=== PATIENT | female | born 1945 | race Caucasian/White ===

== ENCOUNTER → 2016-07-01 | Outpatient (CLI) | payer OTHER ==
[~2016-07-01] MED LIST: ACT35 PO; AMR2 PO; ATR10 PO; CLRUNK PO; CZR50 PO; FLUO20CA35 PO; GLC500 PO; SIMV40TA2 PO
--- NOTE | 2016-07-02 12:40 | MAMMOGRAPHY REPORT ---
BILATERAL DIGITAL SCREENING MAMMOGRAM WITH CAD: 07/01/2016 CLINICAL HISTORY: Routine screening. Patient has no complaints. TECHNIQUE: Bilateral CC and MLO views were obtained. Current study was also evaluated with a Comput er Aided Detection (CAD) system. COMPARISON: Comparison is made to exams dated: 06/28/2015 mammogram, 06/27/2014 mammogram, 06/24/2013 wanda mogram, 06/22/2012 mammogram, and 06/18/2010 mammogram - [facility]. BREAST COMPOSITION: There are scattered areas of fibroglandular density in both breasts. FINDINGS: An 8 mm focal asymmetry in the upper outer anterior left breast is unchanged mammographica lly dating back to at least 06/14/2009, therefore likely benign. There is a stable benign rim calci fication within the right breast. No suspicious mass, architectural distortion or cluster of microc alcifications is seen. IMPRESSION: ACR BI-RADS CATEGORY 1: NEGATIVE There is no mammographic evidence of malignancy. A 1 year screening mammogram is recommended. The p atient will receive written notification of the results. Approximately 10% of breast cancers are not detected with mammography. A negative mammographic repor t should not delay biopsy if a clinically suggestive mass is present. Jeannette Green M.D. ay/:07/01/2016 15:06:48 Appliance Fixer: Jackelyn Dubois, [facility] letter sent: Normal 1/2 BI-RADS Code: ACR BI-RADS Category 1: Negative
== END | disposition home or self-care (01) ==
LOC: C.MAMM 13:54
PROVIDERS: ATTEND Obstetrics & Gynecology
DX: Z12.31 Encounter for screening mammogram for malignant neoplasm of breast (principal)

== ENCOUNTER → 2016-10-28 | Outpatient (CLI) | payer OTHER ==
[2016-10-28 14:27] LABS: ESTIMATED AVERAGE GLUCOSE 148 mg/dl; HA1C FLAG Normal (Normal)
[2016-10-28 14:45] LABS: ALT/SGPT 19 U/L (12-78); BLOOD UREA NITROGEN 13 mg/dl (7-18); CARBON DIOXIDE 26 mmol/L (21-32); CHLORIDE 108 mmol/L (98-107); CHOLESTEROL 144 mg/dl (0-200); CREATININE 0.84 mg/dl (0.60-1.20); GLUCOSE 121 mg/dl (70-99); POTASSIUM 4.1 mmol/L (3.5-5.1); SODIUM 144 mmol/L (136-145); TRIGLYCERIDES 107 mg/dl (0-150); VERY LOW DENSITY LIPOPROT CALC 21 mg/dl
[2016-10-28 14:49] LABS: CHOLESTEROL/HDL RATIO 2.2; HDL CHOLESTEROL 65 mg/dl; LDL CHOLESTEROL CALCULATED 58 mg/dl
[2016-10-28 15:02] LABS: CALCIUM 9.6 mg/dl (8.5-10.1)
== END | disposition home or self-care (01) ==
LOC: C.LABBC 11:43
PROVIDERS: ATTEND Family Medicine
DX: E11.9 Type 2 diabetes mellitus without complications (principal); E78.5 Hyperlipidemia, unspecified

== ENCOUNTER → 2017-05-05 | Outpatient (CLI) | payer OTHER ==
[2017-05-05 13:51] LABS: ESTIMATED AVERAGE GLUCOSE 148 mg/dl; HA1C FLAG Normal (Normal)
[2017-05-05 14:11] LABS: BLOOD UREA NITROGEN 13 mg/dl (7-18); BUN/CREATININE RATIO 16.4 (10-20); CALCIUM 8.7 mg/dl (8.5-10.1); CARBON DIOXIDE 28 mmol/L (21-32); CHLORIDE 105 mmol/L (98-107); GLUCOSE 124 mg/dl (70-99); POTASSIUM 3.6 mmol/L (3.5-5.1); SODIUM 141 mmol/L (136-145)
== END | disposition home or self-care (01) ==
LOC: C.LABBC 11:06
PROVIDERS: ATTEND Family Medicine
DX: E11.9 Type 2 diabetes mellitus without complications (principal); I10 Essential (primary) hypertension

== ENCOUNTER → 2017-06-03 | Outpatient (CLI) | payer OTHER | END | disposition home or self-care (01) | LOC: C.MAMM 13:59 | PROVIDERS: ATTEND Obstetrics & Gynecology | DX: M81.0 Age-related osteoporosis without current pathological fracture (principal) ==

== ENCOUNTER → 2017-07-02 | Outpatient (CLI) | payer OTHER ==
--- NOTE | 2017-07-02 15:31 | MAMMOGRAPHY REPORT ---
BILATERAL DIGITAL SCREENING MAMMOGRAM TOMOSYNTHESIS WITH CAD: 07/02/2017 CLINICAL HISTORY: Routine screening. Patient has no complaints. TECHNIQUE: Breast tomosynthesis in addition to standard 2D mammography was performed. Current study was also evaluated with a Computer Aided Detection (CAD) system. COMPARISON: Comparison is made to exams dated: 07/01/2016 mammogram, 06/28/2015 mammogram, 06/27/2014 mamm ogram, 06/24/2013 mammogram, 06/22/2012 mammogram, and 06/27/2011 mammogram - [facility] BREAST COMPOSITION: There are scattered areas of fibroglandular density in both breasts. FINDINGS: An asymmetry in the anterior right breast along the posterior nipple line on the CC view ap pears very similar dating back to at least 06/19/2011, therefore likely benign. There are stable haroon nt punctate microcalcifications in the slightly medial and posterior right breast on the CC view. A few scattered benign rim calcifications. No new suspicious mass, architectural distortion or cluster of microcalcifications is seen. IMPRESSION: ACR BI-RADS CATEGORY 1: NEGATIVE There is no mammographic evidence of malignancy. A 1 year screening mammogram is recommended. The pa tient will receive written notification of the results. Approximately 10% of breast cancers are not detected with mammography. A negative mammographic report should not delay biopsy if a clinically suggestive mass is present. Jeannette Green M.D. ay/:07/02/2017 14:50:34 Residential Program Worker: Belkis LEES)(Zeus), [facility] letter sent: Normal 1/2 BI-RADS Code: ACR BI-RADS Category 1: Negative
== END | disposition home or self-care (01) ==
LOC: C.MAMM 14:23
PROVIDERS: ATTEND Obstetrics & Gynecology
DX: Z12.31 Encounter for screening mammogram for malignant neoplasm of breast (principal)

== ENCOUNTER → 2018-01-19 | Outpatient (CLI) | payer OTHER ==
[2018-01-19 14:19] LABS: HEMOGLOBIN A1C 6.7 % (4.5-5.6)
[2018-01-19 14:34] LABS: ALT/SGPT 23 U/L (12-78); BLOOD UREA NITROGEN 17 mg/dl (7-18); CALCIUM 9.3 mg/dl (8.5-10.1); CARBON DIOXIDE 28 mmol/L (21-32); CHOLESTEROL 157 mg/dl (0-200); CREATININE 0.95 mg/dl (0.60-1.20); GLUCOSE 132 mg/dl (70-99); LDL CHOLESTEROL CALCULATED 65 mg/dl; SODIUM 139 mmol/L (136-145)
== END | disposition home or self-care (01) ==
LOC: C.LABBC 10:41
PROVIDERS: ATTEND Family Medicine
DX: E11.9 Type 2 diabetes mellitus without complications (principal); I10 Essential (primary) hypertension

== ENCOUNTER 2018-11-18 13:22 | Inpatient (IN) ==
[2018-11-18] MEDS ORDERED: MoRPHine SULFATE 2 MG/ML CARP IV PRN ×2 (13:37→21:50)
[2018-11-18] MEDS ORDERED: SODIUM CHLORIDE 0.9% 1000ML 1,000 ML IV SCH ×2 (13:45→20:45)
[2018-11-18 14:25] LABS: Basophils # (auto) 0.02 K/uL (0-0.2); Basophils % (auto) 0.3 %; Eosinophils % (auto) 1.5 %; Hematocrit (blood only) 35.6 % (37-47); Hemoglobin 11.9 g/dL (12.0-16.0); Immature Granulocytes # (auto) 0.02 K/uL (0.00-0.02); Immature Granulocytes % (auto) 0.3 %; Lymphocytes % (auto) 24.7 %; Mean Corpuscular Hgb Conc 33.4 g/dL (32-36); Mean Corpuscular Volume 89.4 fL (80-100); Mean Platelet Volume 8.9 fL (7.4-10.4); Monocytes % (auto) 4.6 %; Neutrophils # (auto) 4.44 K/uL (1.4-6.5); Neutrophils % (auto) 68.6 %; Platelet Count 212 K/uL (130-400); RDW Coefficient of Variation 13.8 % (11.5-14.5); RDW Standard Deviation 45.4 fL (36.4-46.3); Red Blood Count 3.98 M/uL (4.2-5.4); White Blood Count 6.48 K/uL (4.8-10.8)
[2018-11-18 14:36] LABS: Partial Thromboplastin Ratio 0.8; Partial Thromboplastin Time 21.5 Seconds (21.0-31.0); Prothrombin Time 9.8 Seconds (9.0-12.0)
[2018-11-18 14:42] LABS: BUN Creatinine Ratio 12.3 (10-20); Calcium 9.5 mg/dl (8.5-10.1); Creatinine Clr Calc Pharmacy 34.7 ml/min; Est GFR (African American) 54.5; Potassium 3.6 mmol/L (3.5-5.1)
--- NOTE | 2018-11-18 14:43 | XRay Report ---
XR hip LT 2-3V w pelvis CLINICAL HISTORY: trauma, deformity COMPARISON: None FINDINGS: Note is made of an acute moderately displaced markedly angulated subtrochanteric fracture of the left femur. The femur at the level of the fracture may extend through the skin. Therefore, thi s may reflect an open fracture. No additional fractures are identified on this exam although position ing was difficult. IMPRESSION: Acute moderately displaced markedly angulated subtrochanteric fracture of the left femur may reflect an open fracture. Electronically signed by: Cruz Vaughn M.D. 11/18/2018 2:41 PM
--- NOTE | 2018-11-18 14:46 | XRay Report ---
SINGLE VIEW CHEST CLINICAL HISTORY: Trauma. Fall. FINDINGS: An AP, portable, supine chest radiograph is obtained. No prior studies are available for co mparison at the time of dictation. The examination is degraded by portable technique and patient rota tion. The cardiomediastinal silhouette is unremarkable. The lungs and pleural spaces are clear. No p neumothorax is seen. The skeletal structures are osteopenic. There are healed right-sided rib fractur es. IMPRESSION: No acute cardiopulmonary abnormality. Electronically signed by: Livan Fuller M.D. 11/18/2018 2:44 PM
[2018-11-18 14:48] LABS: Appearance Urine Clear (Clear); Bilirubin Urine Negative (Negative); Blood Urine Negative (Negative); Color Urine Yellow; Glucose Urine UA 3+ (Negative); Ketones Urine Negative (Negative); Leukocyte Esterase Urine Negative (Negative); Nitrite Urine Negative (Negative); Protein Urine Negative (Negative); Specific Gravity Urine 1.014 (1.000-1.030); Urobilinogen Urine Negative (Negative); pH Urine 7.5 (4.5-7.5)
--- NOTE | 2018-11-18 16:14 | History & Physical Report ---
Date of Service November 18, 2018 Assessment & Plan (1) Fracture of left femur: Patient with acute subtrochanteric fracture of the left femur after a mechanical fall at home. Presently she is neurovascularly intact, pain well controlled at rest. Patient with no active cardiac or pulmonary disease. She is able to complete 4 mets of activity without difficulty. She is medically optimized to proceed with surgery without further testing or intervention. -Admit to medical floor -Neurovascular checks q 4 hours -Consult Orthopedic Surgery for surgical repair -Pain control with Tylenol, Oxycodone and Morphine PRN -Bowel regimen -Zofran PRN nausea Present on Admission?: Yes (2) Diabetes: Patient with DM-II, on Metformin therapy. Blood sugar elevated today at 204, suspect acute stress response. Last HgAIC on 01/19/18 = 6.7 -Hold Metformin while inpatient -Lantus 8 u BID -ISS - moderate stress dose -CC/Heart healthy diet when able Present on Admission?: Yes (3) Hypertension: Blood pressure mildly elevated at present. Most likely secondary to pain, stress response in setting of recent trauma -Continue to monitor -Continue Losartan 50mg po daily Present on Admission?: Yes (4) Hyperlipidemia: Chronic -Continue Simvastatin 40mg po qPM Present on Admission?: Yes (5) Osteoporosis: Oliver had DEXA scan on 03 Jun 2017 which revealed T score 1.5 at spine, -1.8 at left femur neck with moderate fracture risk, -2.0 at right femur neck with moderate fracture risk. Z score normal limit relative to age -Continue Calcium and Vitamin D -Continue Alendronate Present on Admission?: Yes (6) Depression: Chronic. Well controlled -Continue Prozac F/E/N - LR at 125mL/hr x 2 liters, electrolytes WNL, check Mg and PO4 x 1 and replete as needed, NPO for now for possible surgery Ppx - SCDs Code - Full Dispo - MedSurge Present on Admission?: Yes History of Present Illness Chief Complaint: fracture left femur Primary Care Provider: Eunice Ledesma MD Candy Vivar is a pleasant 73yo female with history of DM, HTN, HLP and Ostoeporosis presenting with acute fracture of left femur after a mechanical fall at home. Patient was in her usual state of health this afternoon when she fell walking to her basement. She thinks that she may have tripped on something. She denies head trauma or loss of consciousness. No chest pain, palpitations, dizziness, weakness or incontinence preceding or following the fall. She was at first unable to move her left leg. She had severe pain and was unable to get up. X-ray confirmed acute moderately displaced markedly angulated subtrochanteric fracture of the left femur. Patient presently comfortable. States that she only has pain when she moves her leg. No additional complaints at this time. ER Course: Morphine 2mg, NSS Allergies Allergy/AdvReac Type Severity Reaction Status Date / Time PENICILLIN Allergy Intermediate hives Uncoded 11/18/18 14:22 ORANGES AdvReac Unknown per Uncoded 11/18/18 14:22 allergy test. Home Medications Home Medications Medication Instructions Recorded Confirmed Type alendronate 70 mg PO WK 11/18/18 11/18/18 History fluoxetine 20 mg PO DAILY 11/18/18 11/18/18 History hydroxyzine HCl 10 mg PO DAILY PRN 11/18/18 11/18/18 History losartan 50 mg PO QAM 11/18/18 11/18/18 History metformin 100 mg PO BID 11/18/18 11/18/18 History simvastatin 40 mg PO QPM 11/18/18 11/18/18 History Past Med/Surg History Medical History Depression Dyslipidemia Hypertension No significant past surgical history Osteoporosis Type 2 diabetes mellitus Family History Other Diabetes Social History Preferred Language: [place] Communication Ability: Effective marital status: Current Living Situation: Spouse other: active, ambulatory, independent in ADLs Feels Safe at Home: Yes Smoking Status: Never smoker Hx Alcohol Use: No Hx Substance Use: No Review of Systems Review of Systems: All systems reviewed & are unremarkable except as noted in HPI & below Physical Exam Physical Exam: General: patient resting comfortably on right side, NAD, non- toxic in appearance, AA&O x 4 Skin: warm, dry, intact, no rashes or lesions HEENT: NC/AT, PERRL, EOMI, anicteric sclera, conjunctiva without injection, external ear normal to inspection and nontender, nares patent, moist mucus membranes, dentition intact, no oropharyngeal lesions, neck supple, trachea midline, no LAD, no thyromegaly, no JVD Heart: +S1/S2, regular, no m/r/g Lungs: equal air entry bilaterally, no rales/rhonchi/wheezes Abd: +BS, soft, NT/ND, no masses/organomegaly/ascites Ext: left leg with obvious deformity, extremities warm, 2+ pulses in UE/LE bilaterally, no clubbing/cyanosis or edema, sensation and mobility intact Neuro: nonfocal, patient AA&O x 4, speech intact, no facial droop Results & Data Vital Signs (Past 12 Hours) Vital Signs Temp Pulse Pulse Resp BP BP Pulse Ox 11/18/18 15:38 47 L 17 116/63 99 11/18/18 13:25 37.1 C 69 17 167/58 H 99 Laboratory Results Lab Results 11/18/18 11/18/18 11/18/18 Range/Units 14:10 14:16 14:16 WBC 6.48 (4.8-10.8) K/uL RBC 3.98 L (4.2-5.4) M/uL Hgb 11.9 L (12.0-16.0) g/dL Hct 35.6 L (37-47) % MCV 89.4 (80-100) fL MCH 29.9 (25-34) pg MCHC 33.4 (32-36) g/dL RDW Std Deviation 45.4 (36.4-46.3) fL RDW Coeff of Toña 13.8 (11.5-14.5) % Plt Count 212 (130-400) K/uL MPV 8.9 (7.4-10.4) fL Immature Gran % (Auto) 0.3 % Neut % (Auto) 68.6 % Lymph % (Auto) 24.7 % [place] % (Auto) 4.6 % Eos % (Auto) 1.5 % Baso % (Auto) 0.3 % Immature Gran # (Auto) 0.02 (0.00-0.02) K/uL Neut # (Auto) 4.44 (1.4-6.5) K/uL Lymph # (Auto) 1.60 (1.2-3.4) K/uL [place] # (Auto) 0.30 (0.11-0.59) K/uL Eos # (Auto) 0.10 (0-0.5) K/uL Baso # (Auto) 0.02 (0-0.2) K/uL PT 9.8 (9.0-12.0) Seconds INR 1.0 (0.9-1.1) APTT 21.5 (21.0-31.0) Seconds PTT Ratio 0.8 Sodium (136-145) mmol/L Potassium (3.5-5.1) mmol/L Chloride (98-107) mmol/L Carbon Dioxide (21-32) mmol/L Anion Gap (3-11) BUN (7-18) mg/dl Creatinine (0.6-1.2) mg/dl Est Cr Clr Drug Dosing ml/min Est GFR ( Amer) Est GFR (Non-Af Amer) BUN/Creatinine Ratio (10-20) Glucose (70-99) mg/dl Calcium (8.5-10.1) mg/dl Urine Color Yellow Urine Appearance Clear (Clear) Urine pH 7.5 (4.5-7.5) Ur Specific [place] 1.014 (1.000-1.030) Urine Protein Negative (Negative) Urine Glucose (UA) 3+ H (Negative) Urine Ketones Negative (Negative) Urine Blood Negative (Negative) Urine Nitrite Negative (Negative) Urine Bilirubin Negative (Negative) Urine Urobilinogen Negative (Negative) Ur Leukocyte Esterase Negative (Negative) Blood Type Antibody Screen 11/18/18 11/18/18 Range/Units 14:16 14:16 WBC (4.8-10.8) K/uL RBC (4.2-5.4) M/uL Hgb (12.0-16.0) g/dL Hct (37-47) % MCV (80-100) fL MCH (25-34) pg MCHC (32-36) g/dL RDW Std Deviation (36.4-46.3) fL RDW Coeff of Toña (11.5-14.5) % Plt Count (130-400) K/uL MPV (7.4-10.4) fL Immature Gran % (Auto) % Neut % (Auto) % Lymph % (Auto) % [place] % (Auto) % Eos % (Auto) % Baso % (Auto) % Immature Gran # (Auto) (0.00-0.02) K/uL Neut # (Auto) (1.4-6.5) K/uL Lymph # (Auto) (1.2-3.4) K/uL [place] # (Auto) (0.11-0.59) K/uL Eos # (Auto) (0-0.5) K/uL Baso # (Auto) (0-0.2) K/uL PT (9.0-12.0) Seconds INR (0.9-1.1) APTT (21.0-31.0) Seconds PTT Ratio Sodium 142 (136-145) mmol/L Potassium 3.6 (3.5-5.1) mmol/L Chloride 107 (98-107) mmol/L Carbon Dioxide 29 (21-32) mmol/L Anion Gap 7.0 (3-11) BUN 14 (7-18) mg/dl Creatinine 1.14 (0.6-1.2) mg/dl Est Cr Clr Drug Dosing 34.7 ml/min Est GFR ( Amer) 54.5 Est GFR (Non-Af Amer) 47.0 BUN/Creatinine Ratio 12.3 (10-20) Glucose 204 H (70-99) mg/dl Calcium 9.5 (8.5-10.1) mg/dl Urine Color Urine Appearance (Clear) Urine pH (4.5-7.5) Ur Specific [place] (1.000-1.030) Urine Protein (Negative) Urine Glucose (UA) (Negative) Urine Ketones (Negative) Urine Blood (Negative) Urine Nitrite (Negative) Urine Bilirubin (Negative) Urine Urobilinogen (Negative) Ur Leukocyte Esterase (Negative) Blood Type B Positive Antibody Screen NEGATIVE Diagnostic Findings SINGLE VIEW CHEST CLINICAL HISTORY: Trauma. Fall. FINDINGS: An AP, portable, supine chest radiograph is obtained. No prior studies are available for comparison at the time of dictation. The examination is degraded by portable technique and patient rotation. The cardiomediastinal silhouette is unremarkable. The lungs and pleural spaces are clear. No pneumothorax is seen. The skeletal structures are osteopenic. There are healed right-sided rib fractures. IMPRESSION: No acute cardiopulmonary abnormality. Electronically signed by: Livan Fuller M.D. 11/18/2018 2:44 PM Dictated: 11/18/18 1439 Transcribed: 11/18/18 1439 XR hip LT 2-3V w pelvis CLINICAL HISTORY: trauma, deformity COMPARISON: None FINDINGS: Note is made of an acute moderately displaced markedly angulated subtrochanteric fracture of the left femur. The femur at the level of the fracture may extend through the skin. Therefore, this may reflect an open fracture. No additional fractures are identified on this exam although positioning was difficult. IMPRESSION: Acute moderately displaced markedly angulated subtrochanteric fracture of the left femur may reflect an open fracture. Electronically signed by: Cruz Vaughn M.D. 11/18/2018 2:41 PM Dictated: 11/18/18 1439 Transcribed: 11/18/18 1439 ECG Additional Comments: The study shows NSR at 66bpm, normal axis, AL=684, QRS=72, QYx=652, no ischemic changes, no LVH, no significant change from prior study 23 May 2011 Code Status & VTE Plan Code Status FULL VTE Prophylaxis Plan VTE Prophylaxis will be ordered: Yes (1) Fracture of left femur Encounter type: initial encounter Femur location: subtrochanteric Fracture type: closed Fracture alignment: displaced Qualified Code(s): S72.22XA - Displaced subtrochanteric fracture of left femur, initial encounter for closed fracture (2) Diabetes Diabetes mellitus type: type 2 Diabetes mellitus mcfp insulin use: without intermediate designer use Diabetes mellitus complication status: without complication Qualified Code(s): E11.9 - Type 2 diabetes mellitus without complications (3) Hypertension Hypertension type: essential hypertension Qualified Code(s): I10 - Essential (primary) hypertension (4) Hyperlipidemia Hyperlipidemia type: unspecified Qualified Code(s): E78.5 - Hyperlipidemia, unspecified (5) Osteoporosis Osteoporosis type: unspecified Presence of current pathological fracture: unspecified Qualified Code(s): M81.0 - Age-related osteoporosis without current pathological fracture (6) Depression Depression Type: unspecified Qualified Code(s): F32.9 - Major depressive disorder, single episode, unspecified
--- NOTE | 2018-11-18 16:20 | Orthopedic Consultation ---
Date of Consultation November 18, 2018 Assessment & Plan (1) Femur fracture, left: Medical admission and H&P done. She is medically cleared for surgery per Dr. Finley. Plan on ORIF of displaced Left femur fracture this evening. Her last meal was at 11:30 this morning. We will proceed to the operating room before she has cleared 8 hours NPO, however, as she has already lost a significant amount of blood in her thigh, and the fracture is tenting the skin, which is at risk for breakdown and becoming an open fracture. Contacted Anesthesia PT/OT post operatively Recommendation for case management eval for rehab potential Will need tight glycemic control post-operatively due to her diabetes. Appreciate internal medicine and pharmacy assistance. Plan on xarelto and SCD's for post-op DVT prophylaxis. (2) Acute blood loss anemia: Supervising Physician Co-Signing Physician Notes I saw and examined the patient, obtained informed consent for the procedure and agree with the above note. History of Present Illness Reason for Consultation: Displaced left femur fracture Requesting Physician: Agatha Finley MD Attending Physician: Yusuf Milian MD History of Present Illness This 73 yo F is seen in ED for a displaced left femur fracture that occurred after she tripping while walking down a narrow path this afternoon. Patient was unable to get up an ambulate after the fall due to her left lower extremity deformity and pain. Pt denies any other complaints, such as, CP, SOB, fever, chills, sweats, nausea, vomiting, lethargy or LOC. No numbness/tingling in her left lower extremity. Allergies Allergy/AdvReac Type Severity Reaction Status Date / Time PENICILLIN Allergy Intermediate hives Uncoded 11/18/18 14:22 ORANGES AdvReac Unknown per Uncoded 11/18/18 14:22 allergy test. Home Medications Home Medications Medication Instructions Recorded Confirmed Type alendronate 70 mg PO WK 11/18/18 11/18/18 History fluoxetine 20 mg PO DAILY 11/18/18 11/18/18 History hydroxyzine HCl 10 mg PO DAILY PRN 11/18/18 11/18/18 History losartan 50 mg PO QAM 11/18/18 11/18/18 History metformin 100 mg PO BID 11/18/18 11/18/18 History simvastatin 40 mg PO QPM 11/18/18 11/18/18 History Patient History Medical History Depression Dyslipidemia Hypertension Osteoporosis Type 2 diabetes mellitus Family History Other Diabetes Social History Preferred Language: Portuguese Communication Ability: Effective marital status: Current Living Situation: Spouse other: active, ambulatory, independent in ADLs Feels Safe at Home: Yes Smoking Status: Never smoker Hx Alcohol Use: No Hx Substance Use: No Review of Systems Review of Systems: All systems reviewed & are unremarkable except as noted in HPI & below Physical Exam Constitutional: WD/WN, vitals as above Eyes: PERRL, conjunctivae normal, anicteric sclerae EOM intact bilaterally ENMT: external ear and nose normal, oropharynx normal Respiratory: normal respiratory effort, lungs clear to auscultation normal respiratory effort Auscultation: lungs clear to auscultation bilaterally Cardiovascular: RRR, no murmur, no edema Rate/Rhythm: regular rate and regular rhythm Vessels: posterior tibial pulses present and dorsalis pedis pulses present Gastrointestinal (Abdomen): normal bowel sounds, soft, nontender, no hepatosplenomegaly Musculoskeletal: Left lower extremity: obvious deformity of the proximal shaft of Left femur with TTP. Extremity is shortened and internally rotated. Able to dorsi/plantar flex foot. Able to depict light sensation to touch. Periph pulses are palpable. ROM at knee and hip not tested due to deformity and pain. Skin: no rashes, warm and dry Neurologic: CN's II-XI intact bilaterally Psychiatric: Orientation: alert and oriented x 3 Insight: good insight Judgement: good judgement Results & Data Vital Signs (Past 12 Hours) Vital Signs Temp Pulse Pulse Resp BP BP Pulse Ox 11/18/18 15:38 47 L 17 116/63 99 11/18/18 13:25 37.1 C 69 17 167/58 H 99 Laboratory Results 11/18/18 11/18/18 11/18/18 Range/Units 14:16 14:16 14:16 WBC (4.8-10.8) K/uL RBC (4.2-5.4) M/uL Hgb (12.0-16.0) g/dL Hct (37-47) % MCV (80-100) fL MCH (25-34) pg MCHC (32-36) g/dL RDW Std Deviation (36.4-46.3) fL RDW Coeff of Toña (11.5-14.5) % Plt Count (130-400) K/uL MPV (7.4-10.4) fL Immature Gran % (Auto) % Neut % (Auto) % Lymph % (Auto) % [place] % (Auto) % Eos % (Auto) % Baso % (Auto) % Immature Gran # (Auto) (0.00-0.02) K/uL Neut # (Auto) (1.4-6.5) K/uL Lymph # (Auto) (1.2-3.4) K/uL [place] # (Auto) (0.11-0.59) K/uL Eos # (Auto) (0-0.5) K/uL Baso # (Auto) (0-0.2) K/uL PT 9.8 (9.0-12.0) Seconds INR 1.0 (0.9-1.1) APTT 21.5 (21.0-31.0) Seconds PTT Ratio 0.8 Sodium 142 (136-145) mmol/L Potassium 3.6 (3.5-5.1) mmol/L Chloride 107 (98-107) mmol/L Carbon Dioxide 29 (21-32) mmol/L Anion Gap 7.0 (3-11) BUN 14 (7-18) mg/dl Creatinine 1.14 (0.6-1.2) mg/dl Est Cr Clr Drug Dosing 34.7 ml/min Est GFR ( Amer) 54.5 Est GFR (Non-Af Amer) 47.0 BUN/Creatinine Ratio 12.3 (10-20) Glucose 204 H (70-99) mg/dl Calcium 9.5 (8.5-10.1) mg/dl Urine Color Urine Appearance (Clear) Urine pH (4.5-7.5) Ur Specific [place] (1.000-1.030) Urine Protein (Negative) Urine Glucose (UA) (Negative) Urine Ketones (Negative) Urine Blood (Negative) Urine Nitrite (Negative) Urine Bilirubin (Negative) Urine Urobilinogen (Negative) Ur Leukocyte Esterase (Negative) Blood Type B Positive Antibody Screen NEGATIVE 11/18/18 11/18/18 Range/Units 14:16 14:10 WBC 6.48 (4.8-10.8) K/uL RBC 3.98 L (4.2-5.4) M/uL Hgb 11.9 L (12.0-16.0) g/dL Hct 35.6 L (37-47) % MCV 89.4 (80-100) fL MCH 29.9 (25-34) pg MCHC 33.4 (32-36) g/dL RDW Std Deviation 45.4 (36.4-46.3) fL RDW Coeff of Toña 13.8 (11.5-14.5) % Plt Count 212 (130-400) K/uL MPV 8.9 (7.4-10.4) fL Immature Gran % (Auto) 0.3 % Neut % (Auto) 68.6 % Lymph % (Auto) 24.7 % [place] % (Auto) 4.6 % Eos % (Auto) 1.5 % Baso % (Auto) 0.3 % Immature Gran # (Auto) 0.02 (0.00-0.02) K/uL Neut # (Auto) 4.44 (1.4-6.5) K/uL Lymph # (Auto) 1.60 (1.2-3.4) K/uL [place] # (Auto) 0.30 (0.11-0.59) K/uL Eos # (Auto) 0.10 (0-0.5) K/uL Baso # (Auto) 0.02 (0-0.2) K/uL PT (9.0-12.0) Seconds INR (0.9-1.1) APTT (21.0-31.0) Seconds PTT Ratio Sodium (136-145) mmol/L Potassium (3.5-5.1) mmol/L Chloride (98-107) mmol/L Carbon Dioxide (21-32) mmol/L Anion Gap (3-11) BUN (7-18) mg/dl Creatinine (0.6-1.2) mg/dl Est Cr Clr Drug Dosing ml/min Est GFR ( Amer) Est GFR (Non-Af Amer) BUN/Creatinine Ratio (10-20) Glucose (70-99) mg/dl Calcium (8.5-10.1) mg/dl Urine Color Yellow Urine Appearance Clear (Clear) Urine pH 7.5 (4.5-7.5) Ur Specific [place] 1.014 (1.000-1.030) Urine Protein Negative (Negative) Urine Glucose (UA) 3+ H (Negative) Urine Ketones Negative (Negative) Urine Blood Negative (Negative) Urine Nitrite Negative (Negative) Urine Bilirubin Negative (Negative) Urine Urobilinogen Negative (Negative) Ur Leukocyte Esterase Negative (Negative) Blood Type Antibody Screen Diagnostic Findings XR hip LT 2-3V w pelvis CLINICAL HISTORY: trauma, deformity COMPARISON: None FINDINGS: Note is made of an acute moderately displaced markedly angulated subtrochanteric fracture of the left femur. The femur at the level of the fracture may extend through the skin. Therefore, this may reflect an open fracture. No additional fractures are identified on this exam although positioning was difficult. IMPRESSION: Acute moderately displaced markedly angulated subtrochanteric fracture of the left femur may reflect an open fracture. Electronically signed by: Cruz Vaughn M.D. 11/18/2018 2:41 PM Dictated: 11/18/18 1439 Transcribed: 11/18/18 1439 ECG Additional Comments: ECG Additional Comments: The study shows NSR at 66bpm, normal axis, AA=581, QRS=72, ORs=108, no ischemic changes, no LVH, no significant change from prior study 23 May 2011 (1) Femur fracture, left Encounter type: initial encounter Femur location: unspecified portion of femur Fracture morphology: unspecified fracture morphology Fracture type: closed Qualified Code(s): S72.92XA - Unspecified fracture of left femur, initial encounter for closed fracture
--- NOTE | 2018-11-18 16:52 | Anesthesiology Consultation ---
Date of Service November 18, 2018 Assessment & Plan Chart Review Chart Review: Acceptable Risk for Surgery (Emergency per Dr. Valverde and cannot wait for 8 hours NPO) and Patient NOT seen in Pre Admission Testing Consults Requested none ASA [id number] Proposed Anesthesia Anesthesia Type: General Risk / Benefits Reviewed With: PT / POA / Parent / Guardian, Accepts Plan and Informed Consent Obtained Additional Comments: Discussed options of anesthesia with patient and her ; GETA vs SAB. Explained to patient her risk of aspiration due to her non NPO status. Explained to patient options of SAB without sedation or GETA for her airway protections. R/b of each were explained. Pt opted for GETA. All questions and concerns were answered. Pt accepting risks and consent was signed and witnessed. History Surgery Operation Date: 11/18/18 15:35 Proposed Procedures p Left Femor Intramedullary Wesley Retrograde Nail - Yusuf Milian MD Height/Weight Height: 1.52 m Weight: 60.6 kg Allergies Allergy/AdvReac Type Severity Reaction Status Date / Time PENICILLIN Allergy Intermediate hives Uncoded 11/18/18 14:22 ORANGES AdvReac Unknown per Uncoded 11/18/18 14:22 allergy test. Medications Home Medications Medication Instructions Recorded Confirmed Last Taken alendronate 70 mg PO WK 11/18/18 11/18/18 11/16/18 fluoxetine 20 mg PO DAILY 11/18/18 11/18/18 11/18/18 hydroxyzine HCl 10 mg PO DAILY PRN 11/18/18 11/18/18 Unknown losartan 50 mg PO QAM 11/18/18 11/18/18 Unknown metformin 100 mg PO BID 11/18/18 11/18/18 Unknown simvastatin 40 mg PO QPM 11/18/18 11/18/18 Unknown Active Medications Generic Name Dose Route Start Last Admin Trade Name Freq PRN Reason Stop Dose Admin Sodium Chloride 1,000 mls @ 150 mls/hr 11/18/18 13:45 11/18/18 14:24 Nss 1000ml IV 11/18/18 20:24 150 mls/hr .[id number] LISANDRA Administration Morphine Sulfate 2 mg 11/18/18 13:37 11/18/18 14:23 Morphine Sulfate IV 12/02/18 13:36 2 mg Q1H PRN Administration Moderate Pain (Rating 3,4,5,6) NPO Date Last Intake of Fluids: 11/18/18 Time Last Intake of Fluids: 12:30 Date Last Intake of Solids: 11/18/18 Time Last Intake of Solids: 12:30 Past Medical History Medical History Depression Dyslipidemia Hypertension Osteoporosis Type 2 diabetes mellitus Exercise / Class Metabolic Activity II 4-5 Yardwork/Stairs/Walk up hill Past Family History Family History Other Diabetes Past Anesthesia History No Hx of Anesthesia Complications and No Family Hx of Anesthesia Complications History of PONV No Hx of PONV and Hx of Motion Sickness Social History Smoking Status: Never smoker Do You Dip or Chew Tobacco: No Hx Alcohol Use: No Hx Substance Use: No Review of Systems Respiratory: no cough and no dyspnea Cardiovascular: no chest pain, no dyspnea on exertion and no orthopnea Gastrointestinal: no heartburn, no nausea and no vomiting Physical Exam Vital Signs Last Vital Signs Temp 37.1 C 11/18/18 13:25 Pulse 75 11/18/18 17:01 Resp 17 11/18/18 17:01 BP 112/69 11/18/18 17:01 Pulse Ox 97 11/18/18 17:01 ENMT Mouth: + small oral opening; no TMJ abnormality and no TMJ clicking Thyromental Distance: < 3.5 Finger Breadths Mallampati Class: III Neck normal visual inspection; neck extension not limited Respiratory Auscultation: lungs clear to auscultation bilaterally Cardiovascular Rate/Rhythm: regular rate and regular rhythm Musculoskeletal Spine: normal cervical ROM and no pain with cervical ROM Psychiatric Orientation: alert and oriented x 3 Testing Laboratory Results 11/18/18 14:16 11/18/18 14:16 11/18/18 11/18/18 11/18/18 14:10 14:16 14:16 PT 9.8 INR 1.0 APTT 21.5 Urine Color Yellow Urine Appearance Clear Urine pH 7.5 Ur Specific [place] 1.014 Urine Protein Negative Urine Glucose (UA) 3+ H Urine Ketones Negative Urine Nitrite Negative Ur Leukocyte Esterase Negative Blood Type B Positive Antibody Screen NEGATIVE Electrocardiogram Date: 11/18/18 Findings: + NSR @ (66 bpm) Chest X-Ray Date: 11/18/18 Findings: + NAD
[2018-11-18] MEDS ORDERED: BACITRACIN INJ 50,000 UNIT VIAL ONE (17:23)
[2018-11-18] MEDS ORDERED: fentaNYL citrate 100 MCG/2 ML VIAL IV PRN (17:34)
[2018-11-18] MEDS ORDERED: ATROPINE SULFATE 0.1 MG/ML 10ML SYR IV PRN (17:34)
[2018-11-18] MEDS ORDERED: ONDANSETRON INJ 2 MG/ML 2 ML VIAL IV PRN ×3 (17:34→21:50)
[2018-11-18] MEDS ORDERED: HYDROmorphone INJ 1 MG/ML SYRINGE IV PRN (17:34)
[2018-11-18] MEDS ORDERED: PHENYLEPHRINE 100MCG/ML 5ML SYR IV PRN (17:34)
[2018-11-18] MEDS ORDERED: ePHEDrine sulfate 50 MG/ML AMP IV PRN (17:34)
[2018-11-18] MEDS ORDERED: SUCCINYLCHOLINE 100MG/5ML SYR ONE (17:38)
[2018-11-18] MEDS ORDERED: PROPOFOL IV EMULSION 10 MG/ML 20 ML VIAL IV ONE (17:38)
[2018-11-18] MEDS ORDERED: LIDOCAINE HCL 2% 2 ML VIAL/AMP(20MG/ML) INFIL ONE ×2 (17:39)
[2018-11-18] MEDS ORDERED: MIDAZOLAM HCL 1 MG/ML 2ML VIAL ONE (17:51)
[2018-11-18] MEDS ORDERED: fentaNYL citrate 100 MCG/2 ML VIAL ONE ×2 (17:51→18:38)
[2018-11-18] MEDS ORDERED: BUPIVACAINE 0.5 % 5 MG/1 ML MPF 30ML VIAL ONE (18:00)
[2018-11-18] MEDS ORDERED: CEFAZOLIN 250 MG/ML 1 GM VIAL ONE (18:09)
[2018-11-18] MEDS ORDERED: CEFAZOLIN 1000MG 1,000 MG/7.5 ML SYR IV ONE (18:45)
[2018-11-18] MEDS ORDERED: GLYCOPYRROLATE 0.2 MG/ML VIAL ONE (20:16)
[2018-11-18] MEDS ORDERED: NEOSTIGMINE METHYLSULFATE 5 MG/5 ML SYR ONE (20:16)
[2018-11-18] MEDS ORDERED: ONDANSETRON INJ 2 MG/ML 2 ML VIAL ONE (20:16)
[2018-11-18] MEDS ORDERED: ROCURONIUM BROMIDE 10 MG/ML 5 ML VIAL ONE (20:17)
[2018-11-18] MEDS ORDERED: ePHEDrine sulfate 50 MG/ML SYR ONE (20:18)
[2018-11-18] MEDS ORDERED: ESMOLOL HCL INJ 10 MG/ML 10ML VIAL IV ONE (20:32)
--- NOTE | 2018-11-18 20:34 | Fluoroscopy Report ---
FL femur LT 2V CLINICAL HISTORY: LEFT FEMURAL IM YULISA COMPARISON STUDY: None. FLUOROSCOPY TIME: 4 minutes and 29 seconds. FINDINGS: Status post internal fixation of a left femoral fracture with an intramedullary yulisa with pr oximal and distal interlocking screws. The hardware appears intact. Alignment is near-anatomic. 6 flu oroscopic spot images submitted. IMPRESSION: Fluoroscopy provided for internal fixation of a left femoral fracture. Electronically signed by: Steven Washington M.D. 11/18/2018 8:32 PM
--- NOTE | 2018-11-18 20:37 | Post Operative Brief Note ---
Immediate Post Op Note v1 Date of Surgery November 18, 2018 Pre & Post Diagnosis Operation Date: 11/18/18 15:35 Pre-Op Diagnosis: Displaced Left Femur Fracture Post-Op Diagnosis: Displaced Left Femur Fracture Procedure Operation Date: 11/18/18 15:35 Actual Procedures p Left Femur Intramedullary Wesley Retrograde Nail(Left) - Yusuf Milian MD Surgeon Yusuf Milian MD Sales And Marketing Assistant MARLEEN Mak PA-C Estimated Blood Loss 50 Findings Consistent with Post-Op Diagnosis Fluids 1300 cc Anesthesia Type General Complications none Disposition Accompanied Patient To Recovery: No Disposition: Recovery Room
[2018-11-18] MEDS ORDERED: MAGNESIUM HYDROXIDE SUSP 30 ML UDC PO PRN ×2 (20:42→21:50)
[2018-11-18] MEDS ORDERED: OXYCODONE HCL IR 5 MG TAB (IMMEDIATE RELEASE) PO PRN ×2 (20:42→21:50)
[2018-11-18] MEDS ORDERED: BISACODYL 10 MG SUPP PR PRN ×2 (20:42→21:50)
[2018-11-18] MEDS ORDERED: NALOXONE HCL 0.4 MG/1 ML VIAL/CARP IV PRN ×2 (20:42→21:50)
[2018-11-18] MEDS ORDERED: ACETAMINOPHEN 325 MG TAB PO PRN (20:42)
--- NOTE | 2018-11-18 20:42 | Operative Report ---
Post Operative Report Pre & Post Diagnosis Operation Date: 11/18/18 15:35 Pre-Op Diagnosis: Displaced Left Femur Fracture Post-Op Diagnosis: Displaced Left Femur Fracture Procedure Operation Date: 11/18/18 15:35 Actual Procedures p Left Femur Intramedullary Wesley Retrograde Nail(Left) - Yusuf Milian MD Surgeon Yusuf Milian MD Seed Buyer MARLEEN Mak PA-C Estimated Blood Loss 50 Findings Consistent with Post-Op Diagnosis Specimens none Complications none Disposition Accompanied Patient To Recovery: Yes Disposition: Recovery Room Description of Procedure I was present during the entire case assisting with wound closure and dressing application. Please see Dr. Milian procedure note for specifics of the case. I attest to the content of the Intraoperative Record and any orders documented therein. Any exceptions are noted below.
[2018-11-18] MEDS ORDERED: SENNA 8.6 MG TAB PO SCH (21:00)
--- NOTE | 2018-11-18 21:27 | XRay Report ---
XR femur LT 2V routine CLINICAL HISTORY: post op. Left femoral fracture. COMPARISON STUDY: Left hip 11/18/2018. FINDINGS: Status post internal fixation of the left femoral shaft fracture with an intramedullary lynn and interlocking proximal and distal screws. The hardware appears intact. Alignment is near-anatomic . Skin livia are in place. Small amount of soft tissue gas adjacent to the distal left femur is lik yesica due to the postoperative change. IMPRESSION: Status post internal fixation of a left femoral shaft fracture. The hardware appears int act. Electronically signed by: Steven Washington M.D. 11/18/2018 9:26 PM
[2018-11-18] MEDS ORDERED: DEXTROSE 50% 50 ML SYRINGE IV PRN (21:50)
[2018-11-18] MEDS ORDERED: hydrOXYzine HCl 10 MG TAB PO PRN (21:50)
[2018-11-18] MEDS ORDERED: GLUCAGON FOR INJ 1 MG VIAL SQ PRN (21:50)
[2018-11-18] MEDS ORDERED: GLUCOSE 10 TABS/TUBE PO PRN (21:50)
[2018-11-18] MEDS ORDERED: CARBOHYDRATES FOR HYPOGLYCEMIA PO PRN (21:50)
[2018-11-18] MEDS ORDERED: GLUCOSE 40% GEL 15 GM TUBE PO PRN (21:50)
--- NOTE | 2018-11-18 21:59 | Anesthesiology Progress Note ---
Date of Service November 18, 2018 Anesthesia Post Procedure Vital Signs Vital Signs: Temp Pulse Pulse Pulse Resp BP BP 11/18/18 21:25 36.5 C 75 20 144/68 H 11/18/18 21:15 80 16 141/60 H 11/18/18 21:05 83 14 143/73 H 11/18/18 20:55 83 16 131/86 11/18/18 20:47 36.8 C 84 16 135/63 11/18/18 17:20 36.8 C 81 16 130/63 11/18/18 17:01 75 17 112/69 11/18/18 16:17 66 17 11/18/18 15:38 47 L 17 116/63 11/18/18 13:25 37.1 C 69 17 167/58 H Pulse Ox 11/18/18 21:25 100 11/18/18 21:15 100 11/18/18 21:05 100 11/18/18 20:55 100 11/18/18 20:47 100 11/18/18 17:20 98 11/18/18 17:01 97 11/18/18 16:17 97 11/18/18 15:38 99 11/18/18 13:25 99 Pain Intensity Left Leg: Pain Intensity: 1 Transfer of Care Handoff Completed per policy Notes Mental Status: alert / awake / arousable and participated in evaluation Patient Amnestic to Procedure: Yes Nausea / Vomiting: adequately controlled Pain: adequately controlled Airway Patency, RR, SpO2: stable & adequate BP & HR: stable & adequate Hydration State: stable & adequate Anesthetic Complications: no major complications apparent and Pt Satisfied with anesthetic care
[2018-11-18] MEDS: DOCUSATE SODIUM/SENNA 50/8.6MG TAB PO SCH (23:01)
[2018-11-18] MEDS: FLUOXETINE HCL 20 MG CAP PO SCH (23:01)
[2018-11-18] MEDS: SIMVASTATIN 40 MG TAB PO SCH (23:01)
[2018-11-18] MEDS: INSULIN ASPART 100 UNITS/ML 3 ML PEN SC SCH (23:02)
[2018-11-18] MEDS: INSULIN GLARGINE SOLOSTAR 100 UNITS/ML 3 ML PEN SC SCH (23:03)
--- NOTE | 2018-11-18 23:11 | Operative Report ---
DATE OF OPERATION: 11/18/2018 PREOPERATIVE DIAGNOSIS: Left midshaft femur fracture. POSTOPERATIVE DIAGNOSIS: Left midshaft femur fracture. OPERATION PERFORMED: Open reduction internal fixation of left femoral shaft fracture using a retrograde intramedullary nail. SURGEON: Yusuf Milian MD COMMERCIAL MORTGAGE BROKER: Palmer Mak ESTIMATED BLOOD LOSS: 50 mL. SPECIMENS: None. COMPLICATIONS: None. IMPLANTS: 1. One Synthes 10 mm x 320 mm retrograde femoral nail. 2. Four Synthes 5 mm locking screws measuring 46 mm and 40 mm distally and 30 mm and 32 mm proximally. 3. One 5 mm end cap. INDICATIONS: This patient is a 73-year-old female who fell at home today sustaining a displaced midshaft femur fracture. She has a medical history significant for hypertension, diabetes, non-insulin dependent. She was noted to be neurovascularly intact in the Emergency Room. Her hemoglobin was in 11 consistent with acute blood loss anemia. I had a long discussion with the patient and her about the nature of her diagnosis, treatment options and risks and benefits of each of these treatment options. After reviewing all these, the patient and her elected to proceed with surgery. All questions were answered. Informed consent was signed. OPERATIVE FINDINGS: The fracture was reduced and stabilized using a retrograde titanium intramedullary nail. Two proximal and two distal cross-locking screws were used to control rotation. DESCRIPTION OF THE OPERATION: The patient was identified in the preoperative holding area where her surgical site was marked. She was brought back to the main operating room where general anesthesia was induced on the hospital bed. She was then carefully moved over onto the operating room table. All bony prominences were padded. Perioperative antibiotics were administered. She was prepped and draped in normal sterile fashion. Prior to incision, a multidisciplinary timeout was called. All in the room were in agreement. We began by marking out the proper trajectory for our guidewire on the AP view. We then marked out our trajectory on the lateral view as well. A 3 cm long incision was then made along the medial border of the patellar tendon. We dissected down through subcutaneous tissues to the level of the fascia. She was extremely thin with minimal subcutaneous tissue. We then made our incision just medial to the patellar tendon through the fascia. The guidewire was then placed under the lateral fluoroscopic view and optimized. We then optimized it on the AP view and drilled the guidewire into a depth of approximately 12 cm on the AP and the lateral views. Next, a 12 mm entry reamer was used to open up her intramedullary canal. The guidewire was then placed into the femur with a small bend on the tip of the guidewire. We then advanced the guidewire up to the level of the fracture. At this point, the patient was completely paralyzed. We reduced the fracture using sterile bumps as well as a longitudinal traction and manual manipulation. Once the fracture was reduced, we passed the guidewire across the fracture and advanced it up into the base of the femoral neck. We then obtained our measurement which was right at about 340 mm. I therefore elected to use 320 mm length nail, so that it would not be proud in the knee. We then advanced the reamers over the guidewire. Preoperatively, she had measured to 10 mm canal. We started to get some chatter at around 10 mm. I therefore reamed up by half sizes up to 11.5 mm. At this point, 10 mm x 320 mm titanium nail was opened up. We again confirmed our reduction at the fracture site and then passed the nail over the guidewire advancing it just past the lesser trochanter into the intertrochanteric region. At this point, the lateral view of the knee was checked. The nail was below the Blumensaat's line as was appropriate. Therefore, two distal cross-locking screws were placed using the outrigger guide. The first screw measured 46 mm and the second screw measured 40 mm. While placing the second screw, the first screw we attempted to place was 36 and was not getting adequate bite of the cortex and therefore the screw was removed and wasted. Next, we checked our rotation. We judged this based off of our fracture reduction, which was excellent. We also could see that clinically with the knee flexed, she had good alignment compared with her contralateral leg. Therefore, we then gently tapped the nail to further reduce the fracture and compress it. This was done under fluoroscopic guidance. We then placed two proximal cross-locking screws from anterior to posterior using perfect circles technique. The most proximal of these was a dynamically placed screw. At this point, our lateral knee fluoroscopic view was inspected. This was between 5 and 10 mm end cap. I elected to use 5 mm end cap, so it would not be prominent. This was then placed without difficulty and sat well below Blumensaat's line. At this point, the knee was brought into full extension. We had already removed the outrigger device and we checked the rotation which was within 10 degrees the other leg, which was felt to be acceptable parameters. We then irrigated all of our wounds with copious amounts of Betadine-impregnated saline. This included thoroughly irrigating the knee to remove any bone marrow and blood. We then closed the fascial incision with a running 0 Vicryl. A 2-0 Vicryl was used for the deep dermis. Na were used for the skin. A 4 x 4's and Tegaderms were used for dressings. A compressive wrap was placed from the toes up to the thigh. The patient was awoken from anesthesia and transferred to the recovery room in stable condition. POSTOPERATIVE COURSE: The patient will be admitted to the hospital overnight for pain control. She will be on Xarelto for deep venous thrombosis prophylaxis. She will be weightbearing as tolerated. She will be on the internal medicine service for management of her diabetes and other medical comorbidities. She will likely need a discharge to a rehabilitation facility as she has multiple steps at her home. I attest to the content of the Intraoperative Record and any orders documented therein. Any exception s are noted below.
[2018-11-18] MEDS: LACTATED RINGER'S 1,000 ML IV SCH (23:32)
[2018-11-18] MEDS: CEFAZOLIN 1000MG 1,000 MG/7.5 ML SYR IV SCH (23:33)
[2018-11-19] MEDS: ACETAMINOPHEN 325 MG TAB PO PRN ×3 (04:19→18:24)
[2018-11-19] MEDS: LACTATED RINGER'S 1,000 ML IV SCH (05:11)
[2018-11-19 08:16] LABS: Basophils # (auto) 0.01 K/uL (0-0.2); Basophils % (auto) 0.1 %; Eosinophils # (auto) 0.01 K/uL (0-0.5); Eosinophils % (auto) 0.1 %; Hematocrit (blood only) 27.7 % (37-47); Hemoglobin 9.6 g/dL (12.0-16.0); Immature Granulocytes # (auto) 0.01 K/uL (0.00-0.02); Immature Granulocytes % (auto) 0.1 %; Lymphocytes # (auto) 1.54 K/uL (1.2-3.4); Lymphocytes % (auto) 18.8 %; Mean Corpuscular Hgb Conc 34.7 g/dL (32-36); Mean Corpuscular Volume 88.5 fL (80-100); Mean Platelet Volume 8.6 fL (7.4-10.4); Monocytes # (auto) 0.66 K/uL (0.11-0.59); Monocytes % (auto) 8.1 %; Neutrophils # (auto) 5.94 K/uL (1.4-6.5); Neutrophils % (auto) 72.8 %; Platelet Count 172 K/uL (130-400); RDW Coefficient of Variation 14.1 % (11.5-14.5); RDW Standard Deviation 45.9 fL (36.4-46.3); Red Blood Count 3.13 M/uL (4.2-5.4); White Blood Count 8.17 K/uL (4.8-10.8)
[2018-11-19] MEDS: CEFAZOLIN 1000MG 1,000 MG/7.5 ML SYR IV SCH (08:25)
[2018-11-19] MEDS: LOSARTAN POTASSIUM 50 MG TAB PO SCH (08:26)
[2018-11-19] MEDS: RIVAROXABAN 10 MG TABLET PO SCH (08:26)
[2018-11-19 08:46] LABS: BUN Creatinine Ratio 14.6 (10-20); Est GFR (African American) 76.6; Est GFR (Non-African American) 66.1; Potassium 3.7 mmol/L (3.5-5.1)
[2018-11-19] MEDS ORDERED: FLUOXETINE 20 MG PO SCH (09:00)
--- NOTE | 2018-11-19 09:37 | Orthopedic Progress Note ---
Date of Service November 19, 2018 Assessment & Plan (1) Femur fracture, left: PT/OT daily. She is WBAT LLE. Work on knee ROM. Case management eval for rehab potential Will need tight glycemic control post-operatively due to her diabetes. Appreciate internal medicine and pharmacy assistance. Paul and SCD's for post-op DVT prophylaxis. Follow-up Rukhsana 2 weeks post-op Will continue to follow while she is inpatient Subjective Did well overnight. Having some knee pain which is well controlled on oral medications. Was up walking around her room earlier this morning. No fevers/chills, no cp, sob, no numbness/tingling. Physical Exam Physical Exam: Resting comfortably in bed in NAD L leg: JEAN-CLAUDE wrap in place, c/d/i. Distally NVI. Tolerates knee ROM 0-45 passively Results & Data Vital Signs (Past 12 Hours) Vital Signs Temp Pulse Pulse Resp BP BP Pulse Ox 11/19/18 07:05 36.8 C 73 16 112/67 100 11/19/18 04:00 36.9 C 83 16 122/69 97 11/19/18 00:45 36.8 C 80 16 110/70 96 11/18/18 23:45 37 C 82 16 119/68 98 11/18/18 22:45 36.6 C 86 16 137/77 99 11/18/18 22:22 36.5 C 83 18 107/58 L 100 11/18/18 21:58 36.4 C L 74 16 129/76 99 11/18/18 21:50 36.4 C L 74 16 129/76 99 Diagnostic Findings Post-op x-rays show hardware in good position, no evidence of complication (1) Femur fracture, left Encounter type: initial encounter Femur location: unspecified portion of femur Fracture morphology: unspecified fracture morphology Fracture type: closed Qualified Code(s): S72.92XA - Unspecified fracture of left femur, initial encounter for closed fracture
[2018-11-19 09:49] LABS: Estimated Average Glucose 146 mg/dl; Hemoglobin A1C 6.7 % (4.5-5.6)
[2018-11-19] MEDS: INSULIN GLARGINE SOLOSTAR 100 UNITS/ML 3 ML PEN SC SCH ×2 (10:01→21:02)
[2018-11-19] MEDS: INSULIN ASPART 100 UNITS/ML 3 ML PEN SC SCH ×4 (10:04→21:02)
--- NOTE | 2018-11-19 10:26 | Anesthesiology Progress Note ---
Date of Service November 19, 2018 Anesthesia Post Procedure Vital Signs Vital Signs: Temp Pulse Pulse Pulse Pulse Resp BP 11/19/18 07:05 36.8 C 73 16 11/19/18 04:00 36.9 C 83 16 11/19/18 00:45 36.8 C 80 16 11/18/18 23:45 37 C 82 16 11/18/18 22:45 36.6 C 86 16 11/18/18 22:22 36.5 C 83 18 11/18/18 21:58 36.4 C L 74 16 11/18/18 21:50 36.4 C L 74 16 11/18/18 21:25 36.5 C 75 20 11/18/18 21:15 80 16 11/18/18 21:05 83 14 11/18/18 20:55 83 16 11/18/18 20:47 36.8 C 84 16 11/18/18 17:20 36.8 C 81 16 11/18/18 17:01 75 17 11/18/18 16:17 66 17 11/18/18 15:38 47 L 17 11/18/18 13:25 37.1 C 69 17 167/58 H BP BP Pulse Ox 11/19/18 07:05 112/67 100 11/19/18 04:00 122/69 97 11/19/18 00:45 110/70 96 11/18/18 23:45 119/68 98 11/18/18 22:45 137/77 99 11/18/18 22:22 107/58 L 100 11/18/18 21:58 129/76 99 11/18/18 21:50 129/76 99 11/18/18 21:25 144/68 H 100 11/18/18 21:15 141/60 H 100 11/18/18 21:05 143/73 H 100 11/18/18 20:55 131/86 100 11/18/18 20:47 135/63 100 11/18/18 17:20 130/63 98 11/18/18 17:01 112/69 97 11/18/18 16:17 97 11/18/18 15:38 116/63 99 11/18/18 13:25 99 Pain Intensity Left Leg: Pain Intensity: 0 Notes Mental Status: alert / awake / arousable and participated in evaluation Patient Amnestic to Procedure: Yes Nausea / Vomiting: adequately controlled Pain: adequately controlled Airway Patency, RR, SpO2: stable & adequate BP & HR: stable & adequate Hydration State: stable & adequate Anesthetic Complications: no major complications apparent
--- NOTE | 2018-11-19 16:57 | Hospitalist Progress Note ---
Date of Service November 19, 2018 Assessment & Plan (1) Fracture of left femur: Patient with acute subtrochanteric fracture of the left femur after a mechanical fall at home. S/p open reduction internal fixation of left femoral shaft fracture using a retrograde intramedullary nail with Dr. Milian on 11/18/2018. - Pain control with Tylenol, Oxycodone and Morphine PRN - Bowel regimen - Zofran PRN nausea - PT/OT/CM for placement in rehab (2) Diabetes: A1c was 6.7% this admission. - Hold Metformin while inpatient - Lantus 8 u BID - Sliding scale insulin (3) Hypertension: Blood pressure initially mildly elevated; now normal. - Continue Losartan 50mg po daily (4) Hyperlipidemia: - Continue Simvastatin 40mg po qPM (5) Osteoporosis: Patient had DEXA scan on 03 Jun 2017 which revealed T score 1.5 at spine, -1.8 at left femur neck with moderate fracture risk, -2.0 at right femur neck with moderate fracture risk. Z score normal limit relative to age. - Continue Calcium and Vitamin D - Continue Alendronate (6) Depression: Chronic. Well-controlled. - Continue Prozac (7) DVT prophylaxis: Rivaroxaban per surgery Subjective Minimal knee pain. Review of Systems Review of Systems: All systems reviewed & are unremarkable except as noted in HPI & below Physical Exam Constitutional: WD/WN, vitals as above Eyes: PERRL, conjunctivae normal, anicteric sclerae EOM intact bilaterally Neck: normal visual inspection; neck extension not limited Respiratory: normal respiratory effort, lungs clear to auscultation normal respiratory effort Auscultation: lungs clear to auscultation bilaterally Cardiovascular: RRR, no murmur, no edema Rate/Rhythm: regular rate and regular rhythm Vessels: posterior tibial pulses present and dorsalis pedis pulses present Gastrointestinal (Abdomen): normal bowel sounds, soft, nontender, no hepatosplenomegaly Musculoskeletal: Spine: normal cervical ROM and no pain with cervical ROM Skin: no rashes, warm and dry Neurologic: CN's II-XI intact bilaterally Psychiatric: Orientation: alert and oriented x 3 Insight: good insight Judgement: good judgement Results & Data Vital Signs (Past 12 Hours) Vital Signs Temp Pulse Resp BP Pulse Ox 11/19/18 14:58 36.9 C 80 18 132/77 100 11/19/18 11:18 36.8 C 81 16 127/74 97 11/19/18 07:05 36.8 C 73 16 112/67 100 (1) Fracture of left femur Encounter type: initial encounter Femur location: subtrochanteric Fracture type: closed Fracture alignment: displaced Qualified Code(s): S72.22XA - Displaced subtrochanteric fracture of left femur, initial encounter for closed fracture (2) Diabetes Diabetes mellitus type: type 2 Diabetes mellitus terminal makeup operator insulin use: without jail use Diabetes mellitus complication status: without complication Qualified Code(s): E11.9 - Type 2 diabetes mellitus without complications (3) Hypertension Hypertension type: essential hypertension Qualified Code(s): I10 - Essential (primary) hypertension (4) Hyperlipidemia Hyperlipidemia type: unspecified Qualified Code(s): E78.5 - Hyperlipidemia, unspecified (5) Osteoporosis Osteoporosis type: unspecified Presence of current pathological fracture: unspecified Qualified Code(s): M81.0 - Age-related osteoporosis without current pathological fracture (6) Depression Depression Type: unspecified Qualified Code(s): F32.9 - Major depressive disorder, single episode, unspecified
[2018-11-19] MEDS ORDERED: METFORMIN HCL 500 MG TAB PO SCH (17:00)
[2018-11-19] MEDS: FLUOXETINE HCL 20 MG CAP PO SCH (21:07)
[2018-11-19] MEDS: DOCUSATE SODIUM/SENNA 50/8.6MG TAB PO SCH (21:07)
[2018-11-19] MEDS: SIMVASTATIN 40 MG TAB PO SCH (21:07)
[2018-11-20] MEDS: POLYETHYLENE (MIRALAX) 17 GM PACK PO SCH ×4 (04:51→23:25)
[2018-11-20 06:44] LABS: Hemoglobin 9.9 g/dL (12.0-16.0); Mean Corpuscular Hgb Conc 34.1 g/dL (32-36); Mean Platelet Volume 8.9 fL (7.4-10.4); Platelet Count 186 K/uL (130-400); RDW Coefficient of Variation 14.2 % (11.5-14.5); RDW Standard Deviation 46.8 fL (36.4-46.3); Red Blood Count 3.26 M/uL (4.2-5.4); White Blood Count 8.91 K/uL (4.8-10.8)
[2018-11-20 07:14] LABS: BUN Creatinine Ratio 12.4 (10-20); Calcium 8.7 mg/dl (8.5-10.1); Est GFR (African American) 88.9; Est GFR (Non-African American) 76.7; Potassium 3.7 mmol/L (3.5-5.1)
--- NOTE | 2018-11-20 07:20 | Orthopedic Progress Note ---
Date of Service November 20, 2018 Assessment & Plan (1) Femur fracture, left: PT/OT daily. She is WBAT LLE. Work on knee ROM. Case management eval for rehab potential Will need tight glycemic control post-operatively due to her diabetes. Appreciate internal medicine and pharmacy assistance. Paul and SCD's for post-op DVT prophylaxis. Keep dressings in place until Follow-up [facility] 2 weeks post-op OK to shower with dressings in place Will continue to follow while she is inpatient Subjective Walked 80 feet with PT yesterday. Pain well controlled. Knee still a little sore. Results & Data Vital Signs (Past 12 Hours) Vital Signs Temp Pulse Resp BP Pulse Ox 11/19/18 23:29 37.1 C 77 14 115/68 97 Dressings c/d/i. Distally NVI. (1) Femur fracture, left Encounter type: initial encounter Femur location: unspecified portion of f emur Fracture morphology: unspecified fracture morphology Fracture type: closed Qualified Code(s): S72.92XA - Unspecified fracture of left femur, initial encounter for closed fracture
[2018-11-20] MEDS: RIVAROXABAN 10 MG TABLET PO SCH (09:19)
[2018-11-20] MEDS: LOSARTAN POTASSIUM 50 MG TAB PO SCH (09:20)
[2018-11-20] MEDS: INSULIN GLARGINE SOLOSTAR 100 UNITS/ML 3 ML PEN SC SCH ×2 (09:22→20:24)
[2018-11-20] MEDS: INSULIN ASPART 100 UNITS/ML 3 ML PEN SC SCH ×4 (09:23→20:23)
[2018-11-20] MEDS: ACETAMINOPHEN 325 MG TAB PO PRN ×3 (11:03→23:25)
--- NOTE | 2018-11-20 11:13 | Emergency Department Note ---
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 She states that she tripped, and she landed on her right side. The patient complains of pain in her left hip, noting that movement worsens the symptoms. She denies hitting her head, abdominal pain, rib pain, back pain, and neck pain. The patient denies any prior hip problems. She notes a history of Type 2 diabetes. The patient denies taking any blood thinners. Patient states she felt in her usual state of health prior to the fall. No history of recurrent falls. Home Medications Home Medications Medication Instructions Recorded Confirmed Type alendronate 70 mg PO WK 11/18/18 11/18/18 History fluoxetine 20 mg PO DAILY 11/18/18 11/18/18 History hydroxyzine HCl 10 mg PO DAILY PRN 11/18/18 11/18/18 History losartan 50 mg PO QAM 11/18/18 11/18/18 History metformin 500 mg PO BID 11/18/18 11/18/18 History simvastatin 40 mg PO QPM 11/18/18 11/18/18 History Allergies Allergy/AdvReac Type Severity Reaction Status Date / Time Penicillins Allergy Hives Verified 11/18/18 22:01 orange AdvReac PER Verified 11/18/18 22:03 ALLERGY TEST Past Med/Surg History Medical History Depression Dyslipidemia Hypertension Osteoporosis Type 2 diabetes mellitus Family History Other Diabetes Social History Preferred Language: Tuvaluan Communication Ability: Effective Contribution Solicitor Required: No Beliefs That Will Affect Care: None marital status: Current Living Situation: Spouse Other Information That Helps Us Care for You: No other: active, ambulatory, independent in ADLs Feels Safe at Home: Yes Safety Concerns: Feels Safe At This Time Smoking Status: Former smoker Do You Dip or Chew Tobacco: No Second Hand Exposure: Yes (from pt. was a smoker) Tobacco Cessation Education Requested by Patient: No Hx Alcohol Use: No Hx Substance Use: No Review of Systems See HPI for pertinent positives & negatives. and A total of 10 systems reviewed and were otherwise negative Physical Exam Vital Signs Vital Signs - 24 hr 11/18/18 13:25 11/18/18 15:38 Temperature 98.8 F Temperature Source Oral Sepsis Recent Fever Within 48 Hours No Sepsis New/Unexplained Change in Mental Status No Sepsis Action Taken by Nursing No Action Required Pulse Rate 69 Pulse Rate [Finger] 47 L Pulse Rhythm Regular Pulse Strength Normal Respiratory Rate 17 17 Respiratory Effort / Characteristics Non-Labored Spontaneous Respiratory Depth Normal Respiratory Pattern Regular Blood Pressure 167/58 H Blood Pressure [Left Arm] 116/63 Blood Pressure Mean 94 Blood Pressure Mean [Left Arm] 80 Pulse Oximetry 99 99 Oxygen Delivery Method Room Air Room Air GENERAL: alert, well appearing, well nourished, no distress, non-toxic HEAD: normal cephalic, atraumatic, no tovar signs, no raccoon eyes EYE EXAM: normal conjunctiva, PERRL and EOM's grossly intact OROPHARYNX: no exudate, no erythema, lips, buccal mucosa, and tongue normal and mucous membranes are moist EARS: TMs clear b/l without hemotympanum, no edema to the canal NECK: supple, no nuchal rigidity, no adenopathy, non-tender CHEST: stable to compression anteriorly and posteriorly, no crepitus or evidence of ecchymosis LUNGS: clear to auscultation. Normal chest wall mechanics, no w/r/r HEART: no murmurs, S1 normal and S2 normal ABDOMEN: abdomen soft, non-tender, normo-active bowel sounds, no masses, no r ebound or guarding. PELVIS: stable to compression anteriorly and posteriorly BACK: Back is symmetrical on inspection and there is no deformity, no midline tenderness, no CVA tenderness. UPPER EXTREMITIES: full active and passive range of motion of all joints without tenderness to palpation LOWER EXTREMITIES: Obvious deformity to the proximal left lower extremity and hip area. Distal pulses intact. She is able to wiggle her toes. Sensation is intact. The left lower extremity has decreased strength and range of motion secondary to pain and deformity. No pain or deformity to the right lower e xtremity. NEURO EXAM: Normal sensorium, cranial nerves II-XII grossly intact, normal speech, no gross weakness of arms, no gross weakness of legs. GCS: 15. Course 1326: The patient was evaluated in room A03. A complete history and physical exam was performed. 1449: I updated the patient and her , at bedside, on the results. 1459: I spoke with Dr. Milian, Orthopedics, about the patients case. He asked that the patient be admitted to medicine. 1507: I updated the patient about the plan. She was in agreement. 1512: I spoke with Dr. Jerri Finley, [facility] hospitalist, about the patients case. She will further evaluate the patient. 1548: I reevaluated the patient. She was seen by Dr. Finley, and Dr. Milian is now at bedside. Consultations Consultation #1: I spoke with Dr. Milian, Orthopedics, about the patients case. He asked that the patient be admitted to medicine. Time: 14:59 Consultation #2: I spoke with Dr. Jerri Finley, [facility] hospitalist, about the patients case. She will further evaluate the patient. Time: 15:12 Administered Medications Acetaminophen (Tylenol) 650 mg PO Q6H PRN PRN Reason: MILD Pain (Scale 1,2,3) Stop: 12/18/18 21:49 Last Admin: 11/20/18 11:03 Dose: 650 mg Documented by: [id number] Admin: 11/19/18 18:24 Dose: 650 mg Documented by: [id number] Admin: 11/19/18 10:21 Dose: 650 mg Documented by: [id number] Admin: 11/19/18 04:19 Dose: 650 mg Documented by: [id number] Fluoxetine HCl (Prozac) 20 mg PO HS [facility] Stop: 12/18/18 21:49 Last Admin: 11/19/18 21:07 Dose: 20 mg Documented by: [id number] Admin: 11/18/18 23:01 Dose: 20 mg Documented by: [id number] Insulin Aspart (Novolog Flexpen) 0 units SC ACHS [facility]ANDR[facility] Stop: 12/18/18 21:49 Last Admin: 11/20/18 09:23 Dose: 2 units Documented by: [id number] Cosigned by: [id number] Admin: 11/19/18 21:02 Dose: 2 units Documented by: [id number] Cosigned by: [id number] Admin: 11/19/18 18:21 Dose: 3 units Documented by: [id number] Cosigned by: [id number] Admin: 11/19/18 13:25 Dose: 1 units Documented by: [id number] Cosigned by: [id number] Admin: 11/19/18 10:04 Dose: 2 units Documented by: [id number] Cosigned by: [id number] Admin: 11/18/18 23:02 Dose: 4 units Documented by: [id number] Cosigned by: [id number] Insulin Glargine (Lantus Solostar Pen) 8 units SC BID [facility] Stop: 12/18/18 21:49 Last Admin: 11/20/18 09:22 Dose: 8 units Documented by: [id number] Cosigned by: [id number] Admin: 11/19/18 21:02 Dose: 8 units Documented by: [id number] Cosigned by: [id number] Admin: 11/19/18 10:01 Dose: 8 units Documented by: [id number] Cosigned by: [id number] Admin: 11/18/18 23:03 Dose: 8 units Documented by: [id number] Cosigned by: [id number] Losartan Potassium (Cozaar) 50 mg PO QAM [facility]AN[facility] Stop: 12/19/18 08:59 Last Admin: 11/20/18 09:20 Dose: 50 mg Documented by: [id number] Admin: 11/19/18 08:26 Dose: 50 mg Documented by: [id number] Polyethylene Glycol (Miralax Powder Packet) 17 gm PO Q6 LISANDRA Stop: 12/20/18 05:59 Last Admin: 11/20/18 04:51 Dose: 17 gm Documented by: [id number] Rivaroxaban (Xarelto) 10 mg PO DAILY [facility] Stop: 12/19/18 08:59 Last Admin: 11/20/18 09:19 Dose: 10 mg Documented by: [id number] Admin: 11/19/18 08:26 Dose: 10 mg Documented by: [id number] Senna/Docusate Sodium (Senokot S) 2 tab PO HS [facility]AN[facility] Stop: 12/18/18 21:49 Last Admin: 11/19/18 21:07 Dose: 2 tab Documented by: [id number] Admin: 11/18/18 23:01 Dose: 2 tab Documented by: [id number] Simvastatin (Zocor) 40 mg PO QPM [facility] Stop: 12/18/18 21:49 Last Admin: 11/19/18 21:07 Dose: 40 mg Documented by: [id number] Admin: 11/18/18 23:01 Dose: 40 mg Documented by: [id number] Discontinued Medications Bacitracin (Bacitracin) Confirm Administered Dose 50,000 units .ROUTE .STK-MED ONE Stop: 11/18/18 17:24 Last Admin: 11/18/18 20:16 Dose: 50,000 units Documented by: [id number] Bupivacaine HCl (Marcaine 0.5% Mpf) Confirm Administered Dose 30 ml .ROUTE .STK-MED ONE Stop: 11/18/18 18:01 Last Admin: 11/18/18 20:31 Dose: 30 ml Documented by: [id number] Sodium Chloride (Nss 1000ml) 1,000 mls @ 150 mls/hr IV .Q6H40M LISANDRA Stop: 11/18/18 20:24 Last Infusion: 11/18/18 22:13 Dose: 0 mls/hr Documented by: [id number] Admin: 11/18/18 14:24 Dose: 150 mls/hr Documented by: [id number] Cefazolin Sodium (Ancef 1000mg) 1,000 mg in 7.5 mls @ 2.5 mls/min IV ONCE ONE Stop: 11/18/18 18:47 Last Admin: 11/18/18 18:12 Dose: 2.5 mls/min Documented by: [id number] Cefazolin Sodium (Ancef 1000mg) 1,000 mg in 7.5 mls @ 2.5 mls/min IV Q8H [facility]; Protocol Stop: 11/19/18 08:02 Last Admin: 11/19/18 08:25 Dose: 2.5 mls/min Documented by: [id number] Admin: 11/18/18 23:33 Dose: 2.5 mls/min Documented by: [id number] Lactated Ringer's (Lr) 1,000 mls @ 125 mls/hr IV .Q8H [facility] Stop: 11/19/18 13:59 Last Infusion: 11/19/18 12:44 Dose: 0 mls/hr Documented by: [id number] Admin: 11/19/18 05:11 Dose: 125 mls/hr Documented by: [id number] Admin: 11/18/18 23:32 Dose: Not Given Documented by: [id number] Morphine Sulfate (Morphine Sulfate) 2 mg IV Q1H PRN PRN Reason: Moderate Pain (Rating 3,4,5,6) Stop: 12/02/18 13:36 Last Admin: 11/18/18 14:23 Dose: 2 mg Documented by: [id number] Sennosides (Senokot) 17.2 mg PO HS [facility] Stop: 12/18/18 20:59 Last Admin: 11/18/18 23:01 Dose: 17.2 mg Documented by: [id number] Medical Decision Making Differential Diagnosis Differential diagnoses include major intracranial, cervical, spinal, thoracic, abdominal, pelvic and neurologic injury. Fracture, contusion, sprain, strain, laceration, abrasions included as well. Medical Records Attestation: I reviewed the patient's medical records. Home Medications Current Medication List: was personally reviewed by me Laboratory Data Attestation: I reviewed the patient's lab results. Result diagrams: 11/20/18 06:13 11/20/18 06:13 Lab Results 11/18/18 11/18/18 11/18/18 Range/Units 14:10 14:16 14:16 WBC 6.48 (4.8-10.8) K/uL RBC 3.98 L (4.2-5.4) M/uL Hgb 11.9 L (12.0-16.0) g/dL Hct 35.6 L (37-47) % MCV 89.4 (80-100) fL MCH 29.9 (25-34) pg MCHC 33.4 (32-36) g/dL RDW Std Deviation 45.4 (36.4-46.3) fL RDW Coeff of Toña 13.8 (11.5-14.5) % Plt Count 212 (130-400) K/uL MPV 8.9 (7.4-10.4) fL Immature Gran % (Auto) 0.3 % Neut % (Auto) 68.6 % Lymph % (Auto) 24.7 % [place] % (Auto) 4.6 % Eos % (Auto) 1.5 % Baso % (Auto) 0.3 % Immature Gran # (Auto) 0.02 (0.00-0.02) K/uL Neut # (Auto) 4.44 (1.4-6.5) K/uL Lymph # (Auto) 1.60 (1.2-3.4) K/uL [place] # (Auto) 0.30 (0.11-0.59) K/uL Eos # (Auto) 0.10 (0-0.5) K/uL Baso # (Auto) 0.02 (0-0.2) K/uL PT 9.8 (9.0-12.0) Seconds INR 1.0 (0.9-1.1) APTT 21.5 (21.0-31.0) Seconds PTT Ratio 0.8 Sodium (136-145) mmol/L Potassium (3.5-5.1) mmol/L Chloride (98-107) mmol/L Carbon Dioxide (21-32) mmol/L Anion Gap (3-11) BUN (7-18) mg/dl Creatinine (0.6-1.2) mg/dl Est Cr Clr Drug Dosing ml/min Est GFR ( Amer) Est GFR (Non-Af Amer) BUN/Creatinine Ratio (10-20) Glucose (70-99) mg/dl Calcium (8.5-10.1) mg/dl Urine Color Yellow Urine Appearance Clear (Clear) Urine pH 7.5 (4.5-7.5) Ur Specific [place] 1.014 (1.000-1.030) Urine Protein Negative (Negative) Urine Glucose (UA) 3+ H (Negative) Urine Ketones Negative (Negative) Urine Blood Negative (Negative) Urine Nitrite Negative (Negative) Urine Bilirubin Negative (Negative) Urine Urobilinogen Negative (Negative) Ur Leukocyte Esterase Negative (Negative) Blood Type Antibody Screen 11/18/18 11/18/18 Range/Units 14:16 14:16 WBC (4.8-10.8) K/uL RBC (4.2-5.4) M/uL Hgb (12.0-16.0) g/dL Hct (37-47) % MCV (80-100) fL MCH (25-34) pg MCHC (32-36) g/dL RDW Std Deviation (36.4-46.3) fL RDW Coeff of Toña (11.5-14.5) % Plt Count (130-400) K/uL MPV (7.4-10.4) fL Immature Gran % (Auto) % Neut % (Auto) % Lymph % (Auto) % [place] % (Auto) % Eos % (Auto) % Baso % (Auto) % Immature Gran # (Auto) (0.00-0.02) K/uL Neut # (Auto) (1.4-6.5) K/uL Lymph # (Auto) (1.2-3.4) K/uL [place] # (Auto) (0.11-0.59) K/uL Eos # (Auto) (0-0.5) K/uL Baso # (Auto) (0-0.2) K/uL PT (9.0-12.0) Seconds INR (0.9-1.1) APTT (21.0-31.0) Seconds PTT Ratio Sodium 142 (136-145) mmol/L Potassium 3.6 (3.5-5.1) mmol/L Chloride 107 (98-107) mmol/L Carbon Dioxide 29 (21-32) mmol/L Anion Gap 7.0 (3-11) BUN 14 (7-18) mg/dl Creatinine 1.14 (0.6-1.2) mg/dl Est Cr Clr Drug Dosing 34.7 ml/min Est GFR ( Amer) 54.5 Est GFR (Non-Af Amer) 47.0 BUN/Creatinine Ratio 12.3 (10-20) Glucose 204 H (70-99) mg/dl Calcium 9.5 (8.5-10.1) mg/dl Urine Color Urine Appearance (Clear) Urine pH (4.5-7.5) Ur Specific [place] (1.000-1.030) Urine Protein (Negative) Urine Glucose (UA) (Negative) Urine Ketones (Negative) Urine Blood (Negative) Urine Nitrite (Negative) Urine Bilirubin (Negative) Urine Urobilinogen (Negative) Ur Leukocyte Esterase (Negative) Blood Type B Positive Antibody Screen NEGATIVE Imaging Data Radiologist's Impression: Radiology results as stated below per my review and the radiologist's interpretation: XR hip LT 2-3V w pelvis CLINICAL HISTORY: trauma, deformity COMPARISON: None FINDINGS: Note is made of an acute moderately displaced markedly angulated subtrochanteric fracture of the left femur. The femur at the level of the fracture may extend through the skin. Therefore, this may reflect an open fract ure. No additional fractures are identified on this exam although positioning was difficult. IMPRESSION: Acute moderately displaced markedly angulated subtrochanteric fracture of the left femur may reflect an open fracture. Electronically signed by: Cruz Vaughn M.D. 11/18/2018 2:41 PM SINGLE VIEW CHEST CLINICAL HISTORY: Trauma. Fall. FINDINGS: An AP, portable, supine chest radiograph is obtained. No prior studies are available for comparison at the time of dictation. The examination is degraded by portable technique and patient rotation. The cardiomediastinal silhouette is unremarkable. The lungs and pleural spaces are clear. No pneumothorax is seen. The skeletal structures are osteopenic. There are healed right-sided rib fractures. IMPRESSION: No acute cardiopulmonary abnormality. Electronically signed by: Livan Fuller M.D. 11/18/2018 2:44 PM ECG Data Attestation: I personally reviewed and interpreted this ECG as follows: Indication: other (fall) Rate (beats per minute): 66 Rhythm: sinus rhythm Findings: + other (normal axis, normal intervals); no acute ischemic change and no ectopy Blood Pressure Blood Pressure Findings: Elevated blood pressure Blood Pressure Disposition: further management by hospitalist [facility] Narrative Patient here with mechanical trip and fall, no loss of consciousness and patient not on antiplatelet or anticoagulation therapy. On trauma evaluation at bedside, patient with obvious deformity to proximal left lower extremity. No other evidence of trauma or injury and no other complaints of pain. Patient did have intact pulses, sensation, and some distal motor function despite deformity. Fracture to the proximal femur noted on x-ray imaging. Labs reassuring with the exception of hyperglycemia however patient is a known diabetic. Upon arrival to , he was most concerned about impending procedure in her healing given that she has a history of osteoporosis. Given patient felt well prior to fall, I do not suspect pathologic fracture. No symptoms or history to suggest syncopal event. Case was discussed with orthopedics who asked the patient be admitted to medicine and have medical clearance prior to plan to take to the operating room later this evening. Case was discussed with Dr. Finley, hospitalist service. Patient hemodynamically stable throughout while in emerg ency department. Impression & Plan Femur fracture, left, Fall Discharge Plan Visit Data *Final* Discharge Date/Time: 11/18/18 17:22 Chief Complaint: Fall ED Provider: Clementina Anan Discharge Problem: Femur fracture, left, Fall Patient Disposition: Admitted As Inpatient Discharge Instructions Interventions: ED Discharge Assessment Last Done: 11/18/18 17:22 Discharge Problem: Femur fracture, left Qualifiers: Encounter type: initial encounter Femur location: unspecified portion of femur Fracture type: closed Fracture morphology: unspecified fracture morphology Qualified Code(s): S72.92XA - Unspecified fracture of left femur, initial encounter for closed fracture Fall Qualifiers: Encounter type: initial encounter Qualified Code(s): W19.XXXA - Unspecified fall, initial encounter The scribe's documentation has been prepared under my direction and personally reviewed by me in its entirety. I confirm that the note above accurately reflects all work, treatment, procedures, and medical decision making performed by me.
--- NOTE | 2018-11-20 15:08 | Hospitalist Progress Note ---
Date of Service November 20, 2018 Assessment & Plan (1) Fracture of left femur: Patient with acute subtrochanteric fracture of the left femur after a mechanical fall at home. S/p open reduction internal fixation of left femoral shaft fracture using a retrograde intramedullary nail with Dr. Milian on 11/18/2018. - Pain control with Tylenol PRN - Bowel regimen - Zofran PRN nausea - PT/OT -> Plan for home rehab (2) Diabetes: A1c was 6.7% this admission. - Hold Metformin while inpatient - Lantus 8 u BID - Sliding scale insulin (3) Hypertension: Blood pressure initially mildly elevated; now normal. - Continue Losartan 50mg PO daily (4) Hyperlipidemia: - Continue Simvastatin 40mg po qPM (5) Osteoporosis: Patient had DEXA scan on 03 Jun 2017 which revealed T score 1.5 at spine, -1.8 at left femur neck with moderate fracture risk, -2.0 at right femur neck with moderate fracture risk. Z score normal limit relative to age. - Continue Calcium and Vitamin D - Continue alendronate (6) Depression: Chronic. Well-controlled. - Continue Prozac (7) DVT prophylaxis: Rivaroxaban per surgery for 21 days Subjective In minimal pain today. No major concerns. Review of Systems Review of Systems: All systems reviewed & are unremarkable except as noted in HPI & below Physical Exam Constitutional: WD/WN, vitals as above Eyes: PERRL, conjunctivae normal, anicteric sclerae EOM intact bilaterally Neck: normal visual inspection; neck extension not limited Respiratory: normal respiratory effort, lungs clear to auscultation normal respiratory effort Auscultation: lungs clear to auscultation bilaterally Cardiovascular: RRR, no murmur, no edema Rate/Rhythm: regular rate and regu lar rhythm Vessels: posterior tibial pulses present and dorsalis pedis pulses present Musculoskeletal: Spine: normal cervical ROM and no pain with cervical ROM Skin: no rashes, warm and dry Psychiatric: Orientation: alert and oriented x 3 Insight: good insight Judgement: good judgement Results & Data Vital Signs (Past 12 Hours) Vital Signs Temp Pulse Resp BP Pulse Ox 11/20/18 08:00 37 C 78 14 130/72 97 (1) Fracture of left femur Encounter type: initial encounter Femur location: subtrochanteric Fracture type: closed Fracture alignment: displaced Qualified Code(s): S72.22XA - Displaced subtrochanteric fracture of left femur, initial encounter for closed fracture (2) Diabetes Diabetes mellitus type: type 2 Diabetes mellitus longterm insulin use: without intermediate designer use Diabetes mellitus complication status: without complica tion Qualified Code(s): E11.9 - Type 2 diabetes mellitus without complications (3) Hypertension Hypertension type: essential hypertension Qualified Code(s): I10 - Essential (primary) hypertension (4) Hyperlipidemia Hyperlipidemia type: unspecified Qualified Code(s): E78.5 - Hyperlipidemia, unspecified (5) Osteoporosis Osteoporosis type: unspecified Presence of current pathological fracture: unspecified Qualified Code(s): M81.0 - Age-related osteoporosis without current pathological fracture (6) Depression Depression Type: unspecified Qualified Code(s): F32.9 - Major depressive disorder, single episode, unspecified
[2018-11-20] MEDS: SIMVASTATIN 40 MG TAB PO SCH (20:14)
[2018-11-20] MEDS: DOCUSATE SODIUM/SENNA 50/8.6MG TAB PO SCH (20:14)
[2018-11-20] MEDS: FLUOXETINE HCL 20 MG CAP PO SCH (20:14)
[2018-11-21] MEDS: POLYETHYLENE (MIRALAX) 17 GM PACK PO SCH (05:52)
[2018-11-21] MEDS ORDERED: Nursing to Pharmacy Communication ONE (06:05)
[2018-11-21] MEDS: ACETAMINOPHEN 325 MG TAB PO PRN (07:50)
--- NOTE | 2018-11-21 08:40 | Orthopedic Progress Note ---
Date of Service November 21, 2018 Assessment & Plan (1) Femur fracture, left: PT/OT daily. She is WBAT LLE. Work on knee ROM. Continue tight glycemic control. Appreciate internal medicine and pharmacy assistance. Paul and SCD's for post-op DVT prophylaxis. Keep dressings in place until Follow-up OK to shower with dressings in place Plan on D/C home today. Follow-up with Rukhsana 2 weeks post-op Subjective Knee feeling better each day, ROM improving. Pain well controlled with tylenol. Physical Exam Physical Exam: A&O x 3. Dressings c/d/i. Distally NVI. Knee ROM 5-65. Results & Data Vital Signs (Past 12 Hours) Vital Signs Temp Pulse Pulse Resp BP BP Pulse Ox 11/21/18 07:45 36.9 C 65 15 124/72 97 11/20/18 23:26 36.9 C 66 14 120/74 98 (1) Femur fracture, left Encounter type: initial encounter Femur location: unspecified portion of femur Fracture morphology: unspecified fracture morphology Fracture type: closed Qualified Code(s): S72.92XA - Unspecified fracture of left femur, initial encounter for closed fracture
[2018-11-21] MEDS: LOSARTAN POTASSIUM 50 MG TAB PO SCH (08:55)
[2018-11-21] MEDS: RIVAROXABAN 10 MG TABLET PO SCH (08:56)
[2018-11-21] MEDS: INSULIN ASPART 100 UNITS/ML 3 ML PEN SC SCH ×2 (08:59→12:39)
[2018-11-21] MEDS: INSULIN GLARGINE SOLOSTAR 100 UNITS/ML 3 ML PEN SC SCH (09:00)
--- NOTE | 2018-11-21 12:58 | Discharge Summary ---
Date of Service November 21, 2018 Admission HPI Per Admitting Provider Candy Vivar is a pleasant 73yo female with history of DM, HTN, HLP and Ostoeporosis presenting with acute fracture of left femur after a mechanical fall at home. Patient was in her usual state of health this afternoon when she fell walking to her basement. She thinks that she may have tripped on something. She denies head trauma or loss of consciousness. No chest pain, palpitations, dizziness, weakness or incontinence preceding or following the fall. She was at first unable to move her left leg. She had severe pain and was unable to get up. X-ray confirmed acute moderately displaced markedly angulated subtrochanteric fracture of the left femur. Patient presently comfortable. States that she only has pain when she moves her leg. No additional complaints at this time. ER Course: Morphine 2mg, NSS Principal Diagnosis Left femur fracture Discharge Exam Constitutional WD/WN, vitals as above Eyes PERRL, conjunctivae normal, anicteric sclerae EOM intact bilaterally Neck normal visual inspection; neck extension not limited Respiratory normal respiratory effort, lungs clear to auscultation normal respiratory effort Auscultation: lungs clear to auscultation bilaterally Cardiovascular RRR, no murmur, no edema Rate/Rhythm: regular rate and regular rhythm Vessels: posterior tibial pulses present and dorsalis pedis pulses present Gastrointestinal (Abdomen) normal bowel sounds, soft, nontender, no hepatosplenomegaly Musculoskeletal Spine: normal cervical ROM and no pain with cervical ROM Skin no rashes, warm and dry Neurologic CN's II-XI intact bilaterally Psychiatric Orientation: alert and oriented x 3 Insight: good insight Judgement: good judgement Discharge Data Allergies Allergy/AdvReac Type Severity Reaction Status Date / Time Penicillins Allergy Hives Verified 11/18/18 22:01 orange AdvReac PER Verified 11/18/18 22:03 ALLERGY TEST Consultations 11/18/18 15:04 Consult Orthopedic Surgery Stat 11/18/18 15:15 ED Decision to Admit Stat 11/18/18 20:43 Consult Case Management - Discharge Planning Routine 11/18/18 21:50 Consult Anesthesiology Routine Consult Case Management - Discharge Planning Routine Consult Orthopedic Surgery Routine Procedures Performed Operation Date: 11/18/18 15:35 Actual Procedures p Left Femur Intramedullary Wesley Retrograde Nail(Left) - Yusuf Milian MD Ordered Studies 11/18/18 18:00 FL femur LT 2V Routine FL fluoroscopy <1hr Routine Hospital Course (1) Fracture of left femur: Patient with acute subtrochanteric fracture of the left femur after a mec hanical fall at home. S/p open reduction internal fixation of left femoral shaft fracture using a retrograde intramedullary nail with Dr. Milian on 11/18/2018. - Pain control with Tylenol PRN - PT/OT -> Plan for home rehab / home health - Follow up in 2 weeks. - Discharged on Xarelto 10mg PO daily x 18 more days. (2) Diabetes: A1c was 6.7% this admission. - Returned to home meds on discharge. (3) Hypertension: Blood pressure initially mildly elevated; now normal. - Continued losartan 50mg PO daily (4) Hyperlipidemia: - Continue simvastatin 40mg po qPM (5) Osteoporosis: Patient had DEXA scan on 03 Jun 2017 which revealed T score 1.5 at spine, -1.8 at left femur neck with moderate fracture risk, -2.0 at right femur neck with moderate fracture risk. Z score normal limit relative to age. - Continue Calcium and Vitamin D - Continue alendronate (6) Depression: Chronic. Well-controlled. - Continue Prozac (7) DVT prophylaxis: Rivaroxaban per surgery for 21 days Total Time Total Time Spent Total Time Spent (In Minutes): 35 Total Time Includes: Examination of the Patient and Communication With Other Providers Discharge Plan Discharge Items Patient Disposition: Home - Home Health Services Reason For Visit: LEFT FEMUR FRACTURE Discharge Diagnosis: Left femur fracture Discharge Goals: Decrease discomfort and Improve disease control Activity: Resume your previous activity Driving/Machine Use Comment: No driving until cleared by sharepoint specialist Weightbearing Comment: as tolerated with walker assistance Non-emergency contact: Primary Care Provider and Surgeon Call non-emergency contact if: your symptoms worsen, your pain is not controlled and your temperature is above 100.5 Follow-up/Referrals: Eunice Ledesma MD [Primary Care Provider] - Yusuf Milian MD [Physician] - (Please keep your scheduled appointment on December 04.) Diet: Carb Consistent or DM2 Addtl Provider Instructions: Please follow the orthopedic doctor's instructions on walking with a walker until you see him. Please take the Xarelto one time per day until it is gone. Prescriptions: New Xarelto 10 mg Tablet 10 mg PO DAILY Qty: 18 RF: 0 Continued losartan 50 mg tablet 50 mg PO QAM RF: 0 metformin 500 mg tablet 500 mg PO BID RF: 0 alendronate 70 mg tablet 70 mg PO WK RF: 0 simvastatin 40 mg tablet 40 mg PO QPM RF: 0 hydroxyzine HCl 10 mg tablet 10 mg PO DAILY PRN (Reason: Allergy Symptoms) RF: 0 fluoxetine 20 mg PO DAILY RF: 0 Stand-Alone Forms: Consult A Doctor [facility] [employer]/Other Patient Handouts: Hyperglycemia, Hypoglycemia, Diabetes Type 2 Coping, Blood Sugar Check, Diabetes Meal Planning Discharge Orders: Discharge Order (Routine); Ordered 11/21/18 Ordered By: Billy Reich Admission Data Admit Date/Time: 11/18/18 17:23 Attending Provider: Billy Reich Admit Provider: Agatha Finley Primary Care Provider: Eunice Ledesma Other Providers: Yusuf Milian ; Cyndi Cleveland ; Billy Reich Service: Surgical Services Other Interventions: Discharge Summary Assessment (RN) Last Done: 11/21/18 10:36
[2018-11-23] MEDS ORDERED: ALENDRONATE SODIUM 70 MG TAB PO SCH (06:30)
== END 2018-11-21 13:02 | disposition home health service (06) | DRG 481 ==
LOC: ED 13:22 → OR 17:22 → 3N 17:22 → SUATTDRO 17:23